=== PATIENT | female | born 1995 | race Caucasian/White ===

== ENCOUNTER 2020-06-22 12:02 | Emergency (ER) | payer BC, OTHER, SELFPAY ==
[2020-06-22 13:20] VITALS: BP 131/80; PULSE 88; RESP 18; TEMP 36.8; O2SAT 98; BMI 39.2
--- NOTE | 2020-06-22 13:31 | HMH.EDUTC ---
[facility] Disposition Clinical Impression: Exposure to COVID-19 virus, Viral syndrome Disposition: Home, Self-Care Condition on Discharge: Good Instructions: Preventing the Spread of Coronavirus Discharge Instructions Additional Instructions: Drink plenty of fluids. Take tylenol for pain or fever. Return if you begin to have difficulty breathing. Follow up with your regular doctor. GO TO THE ER FOR ANY WORSENING SYMPTOMS Prescriptions: Brompheniramine/Pseudoephed/Dm [Bromfed Dm Cough Syrup] 5 ml PO Q6HP PRN #240 syrup PRN Reason: Cough Transmission Status: [id number] Azithromycin [Z-Masoud 250mg Tab*] 250 mg PO UD DOSE PK #6 tab Transmission Status: Received by [id number] Referrals: Dulce Maria Lee APRN [Primary Care Provider] - Time of Disposition: 13:43 Medical Decision Making - Medical Records Medical records reviewed: No: I reviewed the patient's medical records. - Jonathan Inquiry Pt receiving controlled substance: No Vital Signs: 06/22/20 13:20 06/22/20 13:49 Temperature 98.2 F 98.2 F Temperature Source Oral Pulse Rate 88 Pulse Rate [Right Brachial] 88 Respiratory Rate 18 18 Blood Pressure 131/80 Blood Pressure [Right Arm] 131/80 Blood Pressure Mean [Right Arm] 97 Blood Pressure Source [Right Arm] Automatic Cuff Blood Pressure Position [Right Arm] Sitting 02 Sat by Pulse Oximetry 98 Oxygen Delivery Method Room Air Orders (Tests/Meds): ORDERS Category Date Time Status Covid-19 Nasal PCR ([facility]) Routine Lab 06/22/20 13:20 Received [facility] HPI - General Stated complaint: Covid exposure Time Seen by Provider: 06/22/20 13:31 - History of Present Illness Provider Complaint: Her mom and dad have had covid. She has been around them a lot. She states that she has had scratchy sore throat and nasal drainage for the past 2 days. She states that she feels ok and denies any fever or chills or body aches. - Related Data Home Medications Medication Instructions Recorded Confirmed Sertraline HCl [Zoloft 50mg tablet] 50 mg PO DAILY 11/04/19 06/22/20 Previous Rx's Medication Instructions Recorded Azithromycin [Z-Masoud 250mg Tab*] 250 mg PO UD DOSE PK #6 tab 06/22/20 Brompheniramine/Pseudoephed/Dm 5 ml PO Q6HP PRN #240 syrup 06/22/20 [Bromfed Dm Cough Syrup] Allergies Allergy/AdvReac Type Severity Reaction Status Date / Time No Known Allergies Allergy Verified 06/22/20 13:33 [facility] History - Hepatitis A Screen Attestation statement:: This patient has been screened for Hepatitis A risk factors. I have reviewed the patient's past medical history: Yes Laterality Cases: Bilateral: Tonsillectomy - Social History Alcohol Intake: current Occupational Status: other ROS Obtained: Yes All systems reviewed & no additional complaints - Constitutional Constitutional: Reports system reviewed and no additional complaints, except as docu - Eyes Eyes: Reports system reviewed and no additional complaints, except as docu - ENT Ears, Nose, Mouth, and Throat: Reports system reviewed and no additional complaints, except as docu - Cardiovascular Cardiovascular: Reports system reviewed and no additional complaints, except as docu - Respiratory Respiratory: Yes system reviewed and no additional complaints, except as docu - Gastrointestinal Gastrointestingal: Reports: system reviewed and no additional complaints, except as docu Physical Exam - General General appearance: alert, in no apparent distress - Head Head exam: atraumatic, normocephalic, normal inspection - Eye Eye exam: Present: normal appearance, PERRL, EOMI - ENT ENT exam: Present: normal exam, normal oropharynx, mucous membranes moist, TM's normal bilaterally, normal external ear exam - Neck Neck exam: Present: normal inspection, full ROM, trachea midline. Absent: meningismus, lymphadenopathy - Chest Chest inspection: Present: normal inspection, sy
[2020-06-22 13:49] VITALS: BP 131/80; PULSE 88; RESP 18; TEMP 36.8; O2SAT 98
== END 2020-06-22 13:54 | disposition home or self-care (01) ==
PROVIDERS: Emergency Provider Nurse Practitioner Family; PCP Nurse Practitioner Family
DX: Z20.828 Contact with and (suspected) exposure to other viral communicable diseases (principal)
CPT/HCPCS: 99201; U0003

== ENCOUNTER 2022-04-02 11:19 | Emergency (ER) | payer MEDICAID, SELFPAY ==
--- NOTE | 2022-04-02 11:31 | EXP.UTC ---
Discharge Plan Disposition Patient Disposition: Home, Self-Care Condition: Good Prescriptions Prescriptions: New benzonatate [benzonatate] 100 mg capsule 100 mg PO TIDP PRN (Reason: Cough) Qty: 30 0RF ondansetron 4 mg Tablet,Disintegrating 4 mg PO Q8H PRN (Reason: Nausea) Qty: 12 0RF No Action azithromycin 250 MG tablet 250 mg PO UD DOSE PK Qty: 6 0RF Rx Instructions: Take two (2) tablets today, then one (1) tablet days #2 thru #5 [id number] 118 ML syrup 5 ml PO Q6HP PRN (Reason: Cough) Qty: 240 0RF sertraline 50 MG tablet 50 mg PO DAILY Referrals Follow up/Referrals: Provider,Referral, MD [Primary Care Provider] - See instructions Activity Restrictions/Add. Instructions Additional Instructions/Restrictions: Drink plenty of fluids. Take tylenol or ibuprofen for pain or fever. Take the medications as directed. Follow up with your regular doctor. GO TO THE ER FOR ANY WORSENING SYMPTOMS Quarantine until you know the results of your covid-19 test. Notify your school or workplace of your results and follow their instructions regarding return to work/school. Clinical Impressions Clinical Impression: Viral syndrome, Acute viral pharyngitis Stand Alone Forms Stand Alone Forms: Work/School Release Instructions Patient Instructions: DI for Viral Syndrome, Coronavirus Disease 2019, Preventing the Spread of Coronavirus Discharge Instructions Discharge ED Provider: Mario Galindo [facility] General Stated complaint: cough, fever Time Seen by Provider: 04/02/22 11:32 History of Present Illness Provider Complaint: She c/o sore throat and feeling bad for the past 2 days. Related Data Home Medications Medication Instructions Recorded Confirmed sertraline 50 mg tablet 50 mg PO DAILY Anxiety 11/04/19 06/22/20 Previous Rx's Medication Instructions Recorded azithromycin 250 mg tablet 250 mg PO UD DOSE PK #6 tabs 06/22/20 [id number]-[id number] 5 ml PO Q6HP PRN Cough ##240 06/22/20 2 mg-30 mg-10 mg/5 mL oral syrup benzonatate 100 mg capsule 100 mg PO TIDP PRN Cough #30 caps 04/02/22 ondansetron 4 mg disintegrating 4 mg PO Q8H PRN Nausea #12 tabs 04/02/22 tablet Allergies Allergy/AdvReac Type Severity Reaction Status Date / Time No Known Allergies Allergy Verified 04/02/22 11:37 PFSH PFSH Social History Smoking Status: Never smoker alcohol intake: never current occupational status: other Travel in the last 8 weeks: None ROS Obtained: Yes All systems reviewed & no additional complaints except as documented Constitutional Constitutional: Reports chills and Reports fever(s) Eyes Eyes: Denies eye discharge ENT Ears, Nose, Mouth, and Throat: Reports as per HPI Cardiovascular Cardiovascular: Denies chest pain Respiratory Respiratory: Denies chest congestion and Reports cough Gastrointestinal Gastrointestingal: Reports nausea; Denies abdominal pain, constipation, cramping, diarrhea or vomiting Musculoskeletal Musculoskeletal: Denies arthralgias Integumentary/Breasts Skin/Breast: Denies rash Neurologic Neurologic: Denies paresthesias Physical Exam General General appearance: alert and in no apparent distress Head Head exam: atraumatic, normocephalic and normal inspection Eye Eye exam: Present normal appearance, PERRL and EOMI ENT ENT exam: Present mucous membranes moist and normal external ear exam Expanded ENT Exam TM/Canal exam: Bilateral TM: erythema and bulging Nose exam: Absent sinus tenderness Mouth exam: Present normal external inspection; Absent drooling Teeth exam: Present normal inspection Throat exam: Present tonsillar erythema, tonsillomegaly and tonsillar exudate Neck Neck exam: Present normal inspection, full ROM and trachea midline; Absent tenderness, meningismus or lymphadenopathy Chest Chest inspection: Present normal inspection an
[2022-04-02 11:34] VITALS: BP 124/86; PULSE 82; RESP 16; TEMP 37.9; O2SAT 98; BMI 35.5
[2022-04-02 11:45] LABS: UTC Strep Screen (Rapid) Negative (Negative)
[2022-04-02 12:13] VITALS: BP 124/86; PULSE 82; RESP 16; TEMP 37.2
== END 2022-04-02 12:14 | disposition home or self-care (01) ==
PROVIDERS: Emergency Provider Nurse Practitioner Family
DX: U07.1 COVID-19 (principal); J02.8 Acute pharyngitis due to other specified organisms
CPT/HCPCS: 87880; 99212; C9803; G0463; U0003; U0005